=== PATIENT | female | born 1945 | race Caucasian/White ===

== ENCOUNTER → 2017-10-22 09:20 | Outpatient (CLI) | payer MEDICARE, OTHER, SELFPAY ==
--- NOTE | 2017-10-22 09:27 | DI.MG.S_ITS ---
UNILATERAL RIGHT DIGITAL SCREENING MAMMOGRAM 3D/2D WITH CAD POST MASTECTOMY: 10/22/2017 CLINICAL: Routine screening. Personal history of left breast cancer. Comparison is made to exams dated: 10/10/2016 mammogram and 09/12/2016 mammogram - [facility]. The tissue of the right breast is heterogeneously dense. This may lower the sensitivity of mammography. Current study was also evaluated with a Computer Aided Detection (CAD) system. No significant masses, calcifications, or other findings are seen in the breast. There has been no significant interval change. IMPRESSION: NEGATIVE There is no mammographic evidence of malignancy. A 1 year screening mammogram is recommended. This exam was interpreted at Station ID: [id number]. NOTE: For mammograms, a report in lay terms will be sent to the patient. Approximately 15% of breast malignancies will not be visualized mammographically. In the management of a palpable breast mass, a negative mammogram must not discourage biopsy of a clinically suspicious lesion. Electronically Signed By: Raheel hendricks/roxana:10/22/2017 15:52:43 copy to: NATALIIA CALABRESE copy to: BRAYAN CHO letter sent: Normal Exam ACR BI-RADS Category 1: Negative 3341F
== END ==
PROVIDERS: Family Provider Internal Medicine Medical Oncology; PCP Internal Medicine; Visit Provider Nurse Practitioner Gerontology
DX: Z12.31 Encounter for screening mammogram for malignant neoplasm of breast (principal); Z85.3 Personal history of malignant neoplasm of breast
CPT/HCPCS: 77063; 77065

== ENCOUNTER → 2018-06-11 13:13 | Outpatient (CLI) | payer MEDICARE, OTHER, SELFPAY ==
--- NOTE | 2018-06-11 | DI.RAD.S_ITS ---
This blank DEXA report has been sent in error by the PACS system. The correct and complete report will be forthcoming in 1-2 days. Thank you for your patience and understanding. Dictated by: Neno Sandoval M.D. on 06/11/2018 at 14:56 Approved by: Neno Sandoval M.D. on 06/11/2018 at 14:56
== END ==
PROVIDERS: Family Provider Internal Medicine Medical Oncology; PCP Internal Medicine; Visit Provider Nurse Practitioner Gerontology
DX: M85.852 Other specified disorders of bone density and structure, left thigh (principal); Z78.0 Asymptomatic menopausal state; Z85.3 Personal history of malignant neoplasm of breast
CPT/HCPCS: 77080

== ENCOUNTER → 2018-10-23 10:36 | Outpatient (CLI) | payer MEDICARE, OTHER, SELFPAY ==
--- NOTE | 2018-10-23 | DI.MG.S_ITS ---
UNILATERAL RIGHT DIGITAL SCREENING MAMMOGRAM 3D/2D WITH CAD POST MASTECTOMY: 10/23/2018 CLINICAL: Routine screening. Personal history of left breast cancer. Comparison is made to exams dated: 10/22/2017 mammogram - [facility] and 09/12/2016 mammogram - [facility]. The tissue of right breast is heterogeneously dense. This may lower the sensitivity of mammography. Current study was also evaluated with a Computer Aided Detection (CAD) system. There are mole markers on the right breast. No significant masses, calcifications, or other findings are seen in the breast. There has been no significant interval change. IMPRESSION: NEGATIVE There is no mammographic evidence of malignancy. A 1 year screening mammogram is recommended. This exam was interpreted at Station ID: [id number]. NOTE: For mammograms, a report in lay terms will be sent to the patient. Approximately 15% of breast malignancies will not be visualized mammographically. In the management of a palpable breast mass, a negative mammogram must not discourage biopsy of a clinically suspicious lesion. Electronically Signed By: Dave bonilla/roxana:10/23/2018 12:25:55 copy to: MORGAN HERMOSILLO copy to: BRAYAN CHO letter sent: Normal Exam ACR BI-RADS Category 1: Negative 3341F
== END ==
PROVIDERS: Family Provider Internal Medicine Medical Oncology; PCP Internal Medicine; Visit Provider Internal Medicine Medical Oncology
DX: Z12.31 Encounter for screening mammogram for malignant neoplasm of breast (principal); Z85.3 Personal history of malignant neoplasm of breast
CPT/HCPCS: 77063; 77067

== ENCOUNTER → 2020-04-18 11:37 | Outpatient (CLI) | payer MEDICARE, OTHER, SELFPAY ==
--- NOTE | 2020-04-18 | DI.MG.S_ITS ---
UNILATERAL RIGHT DIGITAL SCREENING MAMMOGRAM 3D/2D WITH CAD POST MASTECTOMY: 04/18/2020 CLINICAL: Breast cancer. Routine screening. Comparison is made to exams dated: 10/23/2018 mammogram and 10/22/2017 mammogram - [facility]. The tissue of right breast is heterogeneously dense. This may lower the sensitivity of mammography. Current study was also evaluated with a Computer Aided Detection (CAD) system. There are benign calcifications in the right breast. There are mole markers on the right breast. No significant masses, calcifications, or other findings are seen in the breast. There has been no significant interval change. IMPRESSION: BENIGN There is no mammographic evidence of malignancy. A 1 year screening mammogram is recommended. This exam was interpreted at Station ID: [id number]. NOTE: For mammograms, a report in lay terms will be sent to the patient. Approximately 15% of breast malignancies will not be visualized mammographically. In the management of a palpable breast mass, a negative mammogram must not discourage biopsy of a clinically suspicious lesion. Electronically Signed By: Soumya walsh/roxana:04/18/2020 13:45:31 copy to: BRAYAN CHO letter sent: Normal Exam ACR BI-RADS Category 2: Benign Finding(s) 3342F
== END ==
PROVIDERS: Family Provider Internal Medicine Medical Oncology; PCP Internal Medicine; Referring Provider Internal Medicine; Visit Provider Internal Medicine Hematology & Oncology
DX: Z12.31 Encounter for screening mammogram for malignant neoplasm of breast (principal)
CPT/HCPCS: 77063; 77067

== ENCOUNTER → 2020-06-30 13:33 | Outpatient (CLI) | payer MEDICARE, OTHER, SELFPAY ==
[2020-06-30] MEDS: COVID-19 VACC #1, MRNA(MOD) 100 MCG/0.5 ML VIAL IM (13:50)
== END ==
PROVIDERS: Family Provider Internal Medicine Medical Oncology; PCP Internal Medicine; Visit Provider Internal Medicine
DX: Z23 Encounter for immunization (principal)
CPT/HCPCS: 0011A; 91301

== ENCOUNTER → 2020-07-28 13:11 | Outpatient (CLI) | payer MEDICARE, OTHER, SELFPAY ==
[2020-07-28] MEDS: COVID-19 VACC #2, MRNA(MOD) 100 MCG/0.5 ML VIAL IM (13:15)
== END ==
PROVIDERS: Family Provider Internal Medicine Medical Oncology; PCP Internal Medicine; Visit Provider Internal Medicine
DX: Z23 Encounter for immunization (principal)
CPT/HCPCS: 0012A; 91301

== ENCOUNTER → 2021-06-20 08:37 | Outpatient (CLI) | payer MEDICARE, OTHER, SELFPAY ==
--- NOTE | 2021-06-20 | DI.MG.S_ITS ---
UNILATERAL RIGHT DIGITAL SCREENING MAMMOGRAM 3D/2D WITH CAD POST MASTECTOMY: 06/20/2021 CLINICAL: Routine screening. Personal history of left breast cancer. Comparison is made to exams dated: 04/18/2020 mammogram, 10/23/2018 mammogram, and 10/22/2017 mammogram - [facility]. The tissue of right breast is heterogeneously dense. This may lower the sensitivity of mammography. Current study was also evaluated with a Computer Aided Detection (CAD) system. There are benign calcifications in the right breast. There are mole markers on the right breast. No significant masses, calcifications, or other findings are seen in the breast. There has been no significant interval change. IMPRESSION: BENIGN There is no mammographic evidence of malignancy. A 1 year screening mammogram is recommended. This exam was interpreted at Station ID: [id number]. NOTE: For mammograms, a report in lay terms will be sent to the patient. Approximately 15% of breast malignancies will not be visualized mammographically. In the management of a palpable breast mass, a negative mammogram must not discourage biopsy of a clinically suspicious lesion. Electronically Signed By: Kaden Reddy M.D., jr/roxana:06/20/2021 10:05:34 copy to: Addis Mauricio copy to: Raeann Charles letter sent: Normal Exam ACR BI-RADS Category 2: Benign Finding(s) 3342F
== END ==
PROVIDERS: Family Provider Internal Medicine Medical Oncology; PCP Internal Medicine; Referring Provider Internal Medicine; Visit Provider Internal Medicine
DX: Z12.31 Encounter for screening mammogram for malignant neoplasm of breast (principal)
CPT/HCPCS: 77063; 77067

== ENCOUNTER → 2021-07-30 11:17 | Outpatient (CLI) | payer MEDICARE, OTHER, SELFPAY ==
[2021-07-30 13:44] LABS: COVID19 -Nasal RAPID Negative (Negative)
== END ==
PROVIDERS: Family Provider Internal Medicine Medical Oncology; PCP Internal Medicine; Visit Provider Family Medicine Sleep Medicine
DX: Z20.822 Contact with and (suspected) exposure to COVID-19 (principal)
CPT/HCPCS: 87635; C9803

== ENCOUNTER 2021-07-31 09:00 | Day surgery (SDC) | payer MEDICARE, OTHER, SELFPAY ==
[2021-07-31 10:04] VITALS: BP 139/76; PULSE 68; RESP 16; TEMP 36.6; O2SAT 100; BMI 21.4
[2021-07-31] MEDS: PROPARACAINE 0.5% OPHTH SOL 2 DROPS EYE-OP (10:12)
[2021-07-31] MEDS: CATARACT EYE COMPOUND (10 DROPS/SYRINGE) 3 DROPS EYE-OP (10:19)
--- NOTE | 2021-07-31 10:59 | P.OP_ITS ---
Operative Date/Time/Diagnoses Pre-op diagnosis: Nuclear Cataract Left eye Post-op diagnosis: same Procedure & Clinicians Same procedure as scheduled: Yes Surgeon: Aron Lee Anesthesia Type: MAC +/- and Sedation Operative Notes Procedure in detail: Patient brought to the operating suite. Tetracaine drops placed in the left eye. Marking instrument was used to michelle the vertical and horizontal meridians. Patient was prepped and draped in sterile manner. Wire lid speculum was placed in the eye. Betadine drops were placed on the eye. This was irrigated. Lido gregg jelly was placed on the eye. A paracentesis port was created with a side- port blade. 0.1 mL 1% preservative free lidocaine was injected into the anterior chamber. The anterior chamber was deepened with viscoelastic. 2.6 mm keratome was used to create a temporal clear corneal incision. Cystotome and Utrata forceps were used to create continuous tear capsulorrhexis. Balanced salt solution was used to hydro dissect the nucleus. The phacoemulsification handpiece was inserted and the nucleus was removed using the stop and chop technique. The irrigation aspiration handpiece was inserted and the remaining cortex was removed. Anterior chamber was deepened with viscoelastic. An Maddox [id number] intraocular lens with a power of 20.0 was injected into the capsular bag. Irrigation aspiration handpiece was inserted and the remaining viscoelastic was removed. The lens was rotated to the 90 degree meridian. Incision was hydrated with balanced salt solution and found to be leak free with pressure with Weck- Dena sponges. 0.1 mL Vigamox injected anterior chamber. 0.3 mL Kenalog 10 mg was injected subconjunctivally. Lid speculum was removed. The patient left the operating room in excellent condition. Complications: none Post-operative Condition: stable Disposition: same day surgery
--- NOTE | 2021-07-31 10:59 | PM.PREOP ---
Pre-operative Note Interval Note History & Physical reviewed/Exam performed by Physician: Yes Changes to H&P: No
[2021-07-31] MEDS: TETRACAINE 0.5% OPHTH DROPS 4 ML 2 DROPS EYE-OP (11:15)
[2021-07-31] MEDS: HYALURONATE SODIUM 30 MG-10 MG/ML SYRINGES 1 BOX INTRAOCULA (11:15)
[2021-07-31] MEDS: MOXIFLOXACIN INJ 4 MG/0.8 ML VIAL 0.5 MG EYE-OP (11:15)
[2021-07-31] MEDS: LIDOCAINE 2% (GLYDO) 6 ML GEL TOP (11:15)
[2021-07-31] MEDS: TRIAMCINOLONE 50 MG/5 ML VIAL INJ (11:15)
[2021-07-31] MEDS: PHENYLEPHRINE/LIDOCAINE VIAL (OR) 0.2 ML EYE-OP (11:15)
[2021-07-31] MEDS: BALANCED SALT IRRIG SOLN NO.2 500 ML, EPINEPHrine 1 MG IRR (11:16)
[2021-07-31 11:35] VITALS: BP 129/65; PULSE 63; RESP 16; TEMP 36.1; O2SAT 100
== END 2021-07-31 11:44 | disposition home or self-care (01) ==
PROVIDERS: Family Provider Internal Medicine Medical Oncology; PCP Internal Medicine; Referring Provider Ophthalmology; Visit Provider Ophthalmology
PROC: (CPT 66984; principal; 2021-07-31 10:45)
DX: H25.12 Age-related nuclear cataract, left eye (principal); I10 Essential (primary) hypertension
CPT/HCPCS: 66984; J0171; J2250; J3301; V2787

== ENCOUNTER → 2021-08-13 11:13 | Outpatient (CLI) | payer MEDICARE, OTHER, SELFPAY ==
[2021-08-13 15:09] LABS: COVID19 -Nasal RAPID Negative (Negative)
== END ==
PROVIDERS: Family Provider Internal Medicine Medical Oncology; PCP Internal Medicine; Visit Provider Physical Medicine & Rehabilitation
DX: Z20.822 Contact with and (suspected) exposure to COVID-19 (principal)
CPT/HCPCS: 87635; C9803

== ENCOUNTER 2021-08-14 06:31 | Day surgery (SDC) | payer MEDICARE, OTHER, SELFPAY ==
[2021-08-14] MEDS: PROPARACAINE 0.5% OPHTH SOL 2 DROPS EYE-OP (06:43)
[2021-08-14] MEDS: CATARACT EYE COMPOUND (10 DROPS/SYRINGE) 3 DROPS EYE-OP (06:47)
[2021-08-14 06:49] VITALS: BP 140/77; PULSE 67; RESP 16; TEMP 36.6; O2SAT 99; BMI 20.7
--- NOTE | 2021-08-14 07:33 | SUR.OPER ---
Supine on eye stretcher, head on extension cradle secured with tape. Arms tucked at sides with blanket. Pillow under knees.
--- NOTE | 2021-08-14 07:48 | P.OP_ITS ---
Operative Date/Time/Diagnoses Pre-op diagnosis: Nuclear cataract right eye Procedure & Clinicians Procedure: Cataract Surgery Same procedure as scheduled: Yes Surgeon: Aron Lee Anesthesia Type: MAC +/- and Sedation Operative Notes Procedure in detail: Patient brought to the operating suite. Tetracaine drops placed in the right eye. Marking instrument was used to michelle the vertical and horizontal meridians. Patient was prepped and draped in sterile manner. Wire lid speculum was placed in the eye. Marking instrument was used to michelle the 105 degree meridian. Betadine drops were placed on the eye. This was irrigated. Lidocaine jelly was placed on the eye. A paracentesis port was created with a side-port blade. 0.1 mL 1% preservative free lidocaine was injected into the anterior chamber. The anterior chamber was deepened with viscoelastic. 2.6 mm keratome was used to create a temporal clear corneal incision. Cystotome and Utrata forceps were used to create continuous tear capsulorrhexis. Balanced salt solution was used to hydro dissect the nucleus. The phacoemulsification handpiece was inserted and the nucleus was removed using the stop and chop technique. The irrigation aspiration handpiece was inserted and the remaining cortex was removed. Anterior chamber was deepened with viscoelastic. An Maddox [id number] intraocular lens with a power of 19.5 was injected into the capsular bag. Irrigation aspiration handpiece was inserted and the remaining viscoelastic was removed. The lens was rotated to the 105 degree meridian. Incision was hydrated with balanced salt solution and found to be leak free with pressure with Weck-Dena sponges. 0.1 mL Vigamox injected anterior chamber. 0.3 mL Kenalog 10 mg was injected subc onjunctivally. Lid speculum was removed. The patient left the operating room in excellent condition. Complications: none Post-operative Condition: stable Disposition: same day surgery
--- NOTE | 2021-08-14 07:48 | PM.PREOP ---
Pre-operative Note Interval Note History & Physical reviewed/Exam performed by Physician: Yes Changes to H&P: No
[2021-08-14] MEDS: HYALURONATE SODIUM 30 MG-10 MG/ML SYRINGES 1 BOX INTRAOCULA (08:03)
[2021-08-14] MEDS: TRIAMCINOLONE 50 MG/5 ML VIAL INJ (08:04)
[2021-08-14] MEDS: PHENYLEPHRINE/LIDOCAINE VIAL (OR) 0.2 ML EYE-OP (08:04)
[2021-08-14] MEDS: MOXIFLOXACIN INJ 4 MG/0.8 ML VIAL 0.5 MG EYE-OP (08:04)
[2021-08-14] MEDS: LIDOCAINE 2% (GLYDO) 6 ML GEL TOP (08:05)
[2021-08-14] MEDS: BALANCED SALT IRRIG SOLN NO.2 500 ML, EPINEPHrine 1 MG IRR (08:05)
[2021-08-14] MEDS: TETRACAINE 0.5% OPHTH DROPS 4 ML 2 DROPS EYE-OP (08:06)
[2021-08-14 08:20] VITALS: BP 120/87; PULSE 71; RESP 14; TEMP 36.1; O2SAT 100
== END 2021-08-14 08:25 | disposition home or self-care (01) ==
PROVIDERS: Family Provider Internal Medicine Medical Oncology; PCP Internal Medicine; Referring Provider Ophthalmology; Visit Provider Ophthalmology
PROC: (CPT 66984; principal; 2021-08-14 07:45)
DX: H25.11 Age-related nuclear cataract, right eye (principal); I10 Essential (primary) hypertension
CPT/HCPCS: 66984; J0171; J2250; J3301; V2787

== ENCOUNTER → 2021-09-20 11:34 | Outpatient (CLI) | payer MEDICARE, OTHER, SELFPAY ==
--- NOTE | 2021-09-20 | DI.RAD.S_ITS ---
PROCEDURE: XR DEXA AXIAL SKELETON INDICATIONS: Other specified disorders of bone density COMPARISON: None. FINDINGS: This blank DEXA report has been sent in error by the PACS system. The correct and complete report will be forthcoming in 1-2 days. Thank you for your patience and understanding. Dictated by: Kristie Rossi MD, PhD on 09/20/2021 at 12:36 Approved by: Kristie Rossi MD, PhD on 09/20/2021 at 12:36
== END ==
PROVIDERS: Family Provider Internal Medicine Medical Oncology; PCP Internal Medicine; Referring Provider Internal Medicine Hematology & Oncology; Visit Provider Internal Medicine Hematology & Oncology
DX: Z13.820 Encounter for screening for osteoporosis; M85.89 Other specified disorders of bone density and structure, multiple sites; Z78.0 Asymptomatic menopausal state
CPT/HCPCS: 77080

== ENCOUNTER → 2021-11-24 09:09 | Outpatient (CLI) | payer MEDICARE, OTHER, SELFPAY ==
[2021-11-24 09:35] LABS: Hematocrit 41.8 % (36-46); Mean Corpuscular HGB Conc 33.6 % (30-36); Mean Corpuscular Hemoglobin 30.2 PG (26-34); Mean Corpuscular Volume 90.1 fL (80-100); Platelet Count 271 X10^3/uL (150-400); Red Blood Cell Count 4.64 X10^6/uL (4.0-5.2); Red Cell Distribution Width 13.9 % (11.6-14.8); White Blood Cell Count 4.6 X10^3/uL (4.5-11.0)
[2021-11-24 09:54] LABS: Alanine Aminotransferase 16 IU/L (<35); Albumin 4.6 g/dL (3.5-5.0); Albumin Globulin Ratio 1.6 (1.0-2.8); Alkaline Phosphatase 45 U/L (38-126); Aspartate Aminotransferase 25 IU/L (14-36); Blood Urea Nitrogen 17 mg/dL (7-17); Calcium 9.4 mg/dL (8.4-10.2); Carbon Dioxide 30 mmol/L (22-32); Chloride 104 mmol/L (98-107); Cholesterol 243 mg/dL (140-199); Estimated Glomerular Filt Rate > 60 mL/min (>60); Globulin 2.8 g/dL (1.7-4.1); Glucose 86 mg/dL (80-110); HEMOLYSIS < 15 (0-50); Sodium 140 mmol/L (137-145); Total Protein 7.4 g/dL (6.3-8.2); Triglycerides 51 mg/dL (35-150)
[2021-11-24 10:06] LABS: HDL Cholesterol 117 mg/dL (40-60); LDL Cholesterol Calculated 116 mg/dL (<100)
[2021-11-24 10:26] LABS: TSH w/ Reflex to FT4 2.98 uIU/mL (0.47-4.68)
== END ==
PROVIDERS: Family Provider Internal Medicine Medical Oncology; PCP Internal Medicine; Referring Provider Internal Medicine; Visit Provider Internal Medicine
DX: I10 Essential (primary) hypertension (principal); C50.912 Malignant neoplasm of unspecified site of left female breast; E78.2 Mixed hyperlipidemia; Z17.0 Estrogen receptor positive status [ER+]
CPT/HCPCS: 36415; 80053; 80061; 84443; 85027

== ENCOUNTER → 2022-06-05 11:44 | Outpatient (CLI) | payer MEDICARE, OTHER, SELFPAY ==
[2022-06-05 14:03] LABS: Aspartate Aminotransferase 26 IU/L (14-36); Blood Urea Nitrogen 12 mg/dL (7-17); Calcium 9.4 mg/dL (8.4-10.2); Carbon Dioxide 29 mmol/L (22-32); Chloride 102 mmol/L (98-107); Cholesterol 164 mg/dL (140-199); Estimated Glomerular Filt Rate > 60 mL/min (>60); Glucose 83 mg/dL (80-110); HDL Cholesterol 77 mg/dL (40-60); HEMOLYSIS < 15 (0-50); LDL Cholesterol Calculated 79 mg/dL (<100); Potassium 4.3 mmol/L (3.4-5.1); Sodium 138 mmol/L (137-145); Triglycerides 40 mg/dL (35-150)
== END ==
PROVIDERS: Family Provider Internal Medicine Medical Oncology; PCP Internal Medicine; Referring Provider Internal Medicine; Visit Provider Internal Medicine
DX: E78.2 Mixed hyperlipidemia (principal); I10 Essential (primary) hypertension
CPT/HCPCS: 36415; 80048; 80061; 84450

== ENCOUNTER → 2022-06-13 09:22 | Outpatient (CLI) | payer MEDICARE, OTHER, SELFPAY ==
--- NOTE | 2022-06-13 | DI.MG.S_ITS ---
UNILATERAL RIGHT DIGITAL SCREENING MAMMOGRAM 3D/2D WITH CAD POST MASTECTOMY: 06/13/2022 CLINICAL: Routine right screening. Personal history of left breast cancer, left mastectomy. Comparison is made to exams dated: 06/20/2021 mammogram, 04/18/2020 mammogram, and 10/23/2018 mammogram - [facility]. The right breast is heterogeneously dense, which may obscure small masses (category c / 51-75% glandular tissue). Current study was also evaluated with a Computer Aided Detection (CAD) system. There are benign calcifications in the right breast. There are mole markers on the right breast. No significant masses, calcifications, or other findings are seen in the breast. There has been no significant interval change. IMPRESSION: BENIGN There is no mammographic evidence of malignancy. A 1 year screening mammogram is recommended. Future imaging is recommended as follows: 06/21/2022 screening mammogram. This exam was interpreted at Station ID: [id number]. NOTE: For mammograms, a report in lay terms will be sent to the patient. Approximately 15% of breast malignancies will not be visualized mammographically. In the management of a palpable breast mass, a negative mammogram must not discourage biopsy of a clinically suspicious lesion. Electronically Signed By: Kaden Reddy M.D., jr/roxana:06/13/2022 12:55:30 copy to: Addis Mauricio copy to: Raeann Charles letter sent: Normal Exam ACR BI-RADS Category 2: Benign Finding(s) 3342F
== END ==
PROVIDERS: Family Provider Internal Medicine Medical Oncology; PCP Internal Medicine; Referring Provider Internal Medicine; Visit Provider Internal Medicine
DX: Z12.31 Encounter for screening mammogram for malignant neoplasm of breast (principal); Z85.3 Personal history of malignant neoplasm of breast; Z90.12 Acquired absence of left breast and nipple
CPT/HCPCS: 77063; 77067

== ENCOUNTER → 2022-11-27 13:27 | Outpatient (CLI) | payer MEDICARE, OTHER, SELFPAY ==
--- NOTE | 2022-11-27 13:28 | DI.ECHO.S_ITS ---
[facility]---------+ [facility] +---------+ : : [address] : [place] : : : : [id number] : : : : Phone: [phone]---------+ Echocardiogram Report + + :Name: JHON MCCABE Study Date: 11/27/2022 Height: 64 in : :[facility] ReadingLocation: Weight: 130 lb : : Gender: Female BSA: 1.6 m2 : :: 1945 Age: 77 yrs BP: 115/73 mmHg: :Reason For Study: ARRHYTHMIA, RULE OUT ATRIAL FIBRILLATION : :Ordering Physician: DENNY, : :TERA Performed By: Kiah Josue : :Referring: TERA BALDWIN : + + Interpretation Summary The patient was in atrial fibrillation with heart rates between 86-122 bpm during the exam. The left ventricle is normal in size. The ejection fraction is estimated to be 60-65%. The right ventricle is normal in size and function. There is moderate mitral regurgitation. Compared to the prior echo study, there has been an increase in the severity of mitral regurgitation. There is mild aortic regurgitation. Compared to the prior echo study, there has been no change in the severity of aortic regurgitation. There is moderate to severe tricuspid regurgitation. Compared to the prior echo exam, there has been an increase in TR severity. The right ventricular systolic pressure is estimated to be at least 30 mmHg based on an estimated right atrial pressure of 3 mm Hg. The IVC is of normal diameter and collapses greater than 50% with a sniff. This suggests a low right atrial pressure of 3 mm Hg. Procedure: A two-dimensional transthoracic echocardiogram with color flow and Doppler was performed. The study quality was technically adequate. Comparison is made with the echocardiogram of 03/21/2017. The patient was in atrial fibrillation with heart rates between 86-122 bpm during the exam. Left Ventricle: The left ventricle is normal in size. Proximal septal thickening is noted. There is no echo evidence for significant left ventricular outflow tract obstruction. There is no thrombus. The ejection fraction is estimated to be 60-65%. There are no focal wall motion abnormalities. Diastolic function could not be accurately assessed due to atrial fibrillation. Right Ventricle: The right ventricle is normal in size and function. Atria: The left atrium is severely dilated. The left atrium has mildly increased in size since the prior echo exam. The right atrium is mildly dilated. There is no Doppler evidence for an interatrial shunt. The interatrial septum bows toward right atrium consistent with elevated left atrial pressure. Mitral Valve: The mitral valve leaflets appear mildly thickened, but open well. There is mild mitral annular calcification. There is moderate mitral regurgitation. Compared to the prior echo study, there has been an increase in the severity of mitral regurgitation. Aortic Valve: The aortic valve is trileaflet. The aortic valve opens well. There is no aortic valve stenosis. There is mild aortic regurgitation. Compared to the prior echo study, there has been no change in the severity of aortic regurgitation. Tricuspid Valve: The tricuspid valve leaflets are thickened and/or calcified, but open well. There is moderate to severe tricuspid regurgitation. The right ventricular systolic pressure is estimated to be at least 30 mmHg based on an estimated right atrial pressure of 3 mm Hg. Compared to the prior echo exam, there has been an increase in TR severity. Pulmonic Valve: The pulmonic valve is not well seen, but is grossly normal. There is no pulmonic valvular regurgitation. Great Vessels: The aortic root is normal size. The dimensions of the ascending aorta are normal. The IVC is of normal diameter and collapses greater than 50% with a sniff. This suggests a low right atrial pressure of 3 mm Hg. Pericardium/ Pleura There is no pericardial effusion. There is an anterior echo-free space consistent with a fat pad. There is no pleural effusion. MMode/2D Measurements & Calculations LVIDd: 3.7 cm LVOT diam: 1.9 cm LVIDs: 2.7 cm Ao root diam: 2.7 cm FS: 28.7 % asc Aorta Diam: 3.7 cm EPSS: 0.34 cm Ao Arch Diam (Prox Trans): 2.6 cm IVSd: 0.90 cm LVPWd: 0.85 cm LV lucero. diameter/BSA (cm/m^2): 2.3 LV sys. diameter/BSA (cm/m^2): 1.6 LA A2 area: 27.2 cm2 RA long axis: 6.2 cm LA A4 area: 24.3 cm2 RA area: 21.5 cm2 LA length (vol): 6.2 cm RA vol: 62.7 ml LA vol: 90.9 ml RA : 38.5 ml/m2 LA vol index: 55.8 ml/m2 IVC diam: 1.2 cm RVD1 (basal): 3.9 cm RVD2 (mid): 2.5 cm TAPSE: 1.9 cm Doppler Measurements & Calculations Ao V2 max: 110.3 cm/sec LVOT Max Julio: 97.0 cm/sec Ao V2 mean: 78.8 cm/sec LV V1 max P.8 mmHg Ao max P.9 mmHg LV V1 VTI: 16.1 cm Ao mean P.7 mmHg SCOUT(I,D): 2.4 cm2 Ao V2 VTI: 18.9 cm SCOUT(V,D): 2.5 cm2 sev ratio: 0.85 SCOUT indexed to BSA (cm^2/m^2): 1.5 AI P1/2t: 791.7 msec AI dec slope: 158.0 cm/sec2 MV E max julio: 92.8 cm/sec TR max julio: 258.4 cm/sec MV A max julio: 1.6 cm/sec TR max P.7 mmHg MV E/A: 59.8 PA V2 max: 63.2 cm/sec Med Peak E' Julio: 10.0 cm/sec PA V2 mean: 45.1 cm/sec E/E' med: 9.3 PA mean P.91 mmHg Lat Peak E' Julio: 12.0 cm/sec PA pr(Accel): 46.5 mmHg E/E' lat: 7.8 E/e' average: 8.5 MV dec time: 0.16 sec SV(LVOT): 46.1 ml Reading Physician:09:21 AM
== END ==
PROVIDERS: Family Provider Internal Medicine Medical Oncology; PCP Internal Medicine; Referring Provider Internal Medicine; Visit Provider Internal Medicine
DX: I08.3 Combined rheumatic disorders of mitral, aortic and tricuspid valves (principal); I49.9 Cardiac arrhythmia, unspecified; I10 Essential (primary) hypertension
CPT/HCPCS: 93306

== ENCOUNTER → 2022-12-27 09:33 | Outpatient (CLI) | payer MEDICARE, OTHER, SELFPAY | PROVIDERS: Family Provider Internal Medicine Medical Oncology; PCP Internal Medicine; Visit Provider Physician Assistant | DX: N39.0 Urinary tract infection, site not specified (principal) | CPT/HCPCS: 87077; 87086; 87186 ==

== ENCOUNTER → 2023-03-07 09:26 | Outpatient (CLI) | payer MEDICARE, OTHER, SELFPAY | PROVIDERS: Family Provider Internal Medicine Medical Oncology; PCP Internal Medicine; Visit Provider Physician Assistant | DX: R30.0 Dysuria (principal) | CPT/HCPCS: 87086 ==

== ENCOUNTER → 2023-06-25 09:24 | Outpatient (CLI) | payer MEDICARE, OTHER, SELFPAY ==
--- NOTE | 2023-06-25 09:27 | DI.MG.S_ITS ---
UNILATERAL RIGHT DIGITAL SCREENING MAMMOGRAM 3D/2D WITH CAD POST MASTECTOMY: 06/25/2023 CLINICAL: Routine screening. Personal history of left breast cancer. Comparison is made to exams dated: 06/13/2022 mammogram, 06/20/2021 mammogram, 04/18/2020 mammogram, and 10/23/2018 mammogram - [facility]. The right breast is heterogeneously dense, which may obscure small masses (category c / 51-75% glandular tissue). Current study was also evaluated with a Computer Aided Detection (CAD) system. There are benign calcifications in the right breast. There are mole markers on the right breast. No significant masses, calcifications, or other findings are seen in the breast. There has been no significant interval change. IMPRESSION: BENIGN There is no mammographic evidence of malignancy. A 1 year screening mammogram is recommended. This exam was interpreted at Station ID: [id number]. NOTE: For mammograms, a report in lay terms will be sent to the patient. Approximately 15% of breast malignancies will not be visualized mammographically. In the management of a palpable breast mass, a negative mammogram must not discourage biopsy of a clinically suspicious lesion. Electronically Signed By: Job harrison/penrad:06/25/2023 14:35:56 copy to: Addis Mauricio copy to: Raeann Charles letter sent: Normal Exam ACR BI-RADS Category 2: Benign Finding(s) 3342F
== END ==
PROVIDERS: Family Provider Internal Medicine Medical Oncology; PCP Internal Medicine; Referring Provider Internal Medicine; Visit Provider Internal Medicine
DX: Z12.31 Encounter for screening mammogram for malignant neoplasm of breast (principal); Z85.3 Personal history of malignant neoplasm of breast; R92.331 Mammographic heterogeneous density, right breast
CPT/HCPCS: 77063; 77067

== ENCOUNTER → 2023-09-01 11:45 | Outpatient (CLI) | payer MEDICARE, OTHER, SELFPAY ==
[2023-09-01 12:41] LABS: Hematocrit 44.1 % (36-46); Hemoglobin 14.6 g/dL (12.0-16.0); Mean Corpuscular HGB Conc 33.2 % (30-36); Mean Corpuscular Hemoglobin 30.1 PG (26-34); Mean Corpuscular Volume 90.7 fL (80-100); Platelet Count 261 X10^3/uL (150-400); Red Blood Cell Count 4.86 X10^6/uL (4.0-5.2); Red Cell Distribution Width 14.4 % (11.6-14.8); White Blood Cell Count 5.4 X10^3/uL (4.5-11.0)
[2023-09-01 13:23] LABS: Alanine Aminotransferase 32 IU/L (<35); Albumin 4.5 g/dL (3.5-5.0); Albumin Globulin Ratio 1.5 (1.0-2.8); Alkaline Phosphatase 63 U/L (38-126); Aspartate Aminotransferase 38 IU/L (14-36); Bilirubin Total 1.1 mg/dL (0.2-1.3); Blood Urea Nitrogen 14 mg/dL (7-17); Calcium 10.1 mg/dL (8.4-10.2); Carbon Dioxide 28 mmol/L (22-32); Chloride 106 mmol/L (98-107); Cholesterol 165 mg/dL (140-199); Estimated Glomerular Filt Rate > 60 mL/min (>60); Globulin 3.1 g/dL (1.7-4.1); Glucose 93 mg/dL (80-110); HDL Cholesterol 87 mg/dL (40-60); HEMOLYSIS < 15 (0-50); LDL Cholesterol Calculated 67 mg/dL (<100); Potassium 4.1 mmol/L (3.4-5.1); Sodium 139 mmol/L (137-145); Total Protein 7.6 g/dL (6.3-8.2); Triglycerides 54 mg/dL (35-150)
[2023-09-01 13:55] LABS: TSH w/ Reflex to FT4 2.17 uIU/mL (0.47-4.68)
[2023-09-02 04:28] LABS: HBsAg Screen Negative (Negative); Hepatitis A Antibody IgM Negative (Negative); Hepatitis B Core Antibody IgM Negative (Negative); Hepatitis C Antibody Non Reactive (Non Reactive)
== END ==
PROVIDERS: Family Provider Internal Medicine Medical Oncology; PCP Internal Medicine; Referring Provider Internal Medicine; Visit Provider Internal Medicine
DX: E78.2 Mixed hyperlipidemia (principal); I48.20 Chronic atrial fibrillation, unspecified; Z20.9 Contact with and (suspected) exposure to unspecified communicable disease
CPT/HCPCS: 36415; 80053; 80061; 80074; 84443; 85027

== ENCOUNTER 2023-10-22 15:00 | Emergency (ER) | payer MEDICARE, OTHER, SELFPAY ==
[2023-10-22 15:11] VITALS: BP 157/89; PULSE 87; RESP 18; TEMP 36.2; O2SAT 97; BMI 22.3
--- NOTE | 2023-10-22 15:18 | DI.RAD.S_ITS ---
PROCEDURE: XR WRIST RT MIN 3V INDICATIONS: fall TECHNIQUE: 4 views of the wrist were acquired. COMPARISON: None. FINDINGS: Bones: No fractures or dislocations. Osteoarthritic changes are noted throughout right wrist most notably involving 1st CMC joint. No suspicious bony lesions. Soft tissues: No suspicious soft tissue calcifications. IMPRESSION: No acute wrist fracture or dislocation. Right wrist joint osteoarthritis. Dictated by: Neno Sandoval M.D. on 10/22/2023 at 16:07 Approved by: Neno Sandoval M.D. on 10/22/2023 at 16:08
--- NOTE | 2023-10-22 16:18 | ED_ITS ---
HPI - Fall <Xin Steven PA-C - Last Filed: 10/22/23 20:40> General Chief Complaint: Fall Stated Complaint: Fall, On thinners, R Wrist concerns Time Seen by Provider: 10/22/23 15:53 Source: patient Mode of arrival: Family Vehicle History of Present Illness HPI Narrative: 78-year-old female presents with concern for right wrist pain and left carrera pain. Patient had a fall today without hitting her head or neck. She denies loss of consciousness. She states that she was standing on the bottom rung of a step stool reaching up into a cabinet above her stove and taking out a large bladder and as she was doing so she somehow lost her balance. She states she fell down but caught herself on the way slamming her right wrist into the adjacent Fridge and some how hitting her left carrera against something. She states she ended up on the floor but denies hitting head loss of consciousness or any other injury or complaint. She denies prodrome prior to the fall and has not had dizziness, shortness of breath, chest pain lightheadedness or any other symptoms. She states she feels she is able to move her wrist fairly normally however it is painful and she has noted swelling on the top of her wrist on the thumb side. She states she is able to walk normally and does have left carrera pain that feels like an aching bruise. She says she is able to move her ankle and foot normally. She denies numbness or tingling in her hand or foot. Related Data Home Medications Medication Instructions Recorded Confirmed letrozole 2.5 mg tablet 2.5 mg PO DAILY 07/31/21 09/01/23 cholecalciferol (vitamin D3) 50 50 mcg PO DAILY 11/23/21 09/01/23 mcg (2,000 unit) capsule vitamin E 268 mg (400 unit) capsule 400 unit PO DAILY 11/23/21 09/01/23 Previous Rx's Medication Instructions Recorded amlodipine 2.5 mg tablet 2.5 mg PO DAILY #90 tabs 05/06/23 apixaban 5 mg tablet (Eliquis) 5 mg PO BID #180 tabs 05/06/23 metoprolol succinate 50 mg 50 mg PO DAILY #90 tabs 05/06/23 tablet,extended release 24 hr rosuvastatin 10 mg tablet 10 mg PO DAILY #90 tabs 05/06/23 Allergies Allergy/AdvReac Type Severity Reaction Status Date / Time latex [LATEX] Allergy Unknown Verified 10/22/23 15:18 morphine [MORPHINE] Allergy Unknown Verified 10/22/23 15:18 Penicillins [PENICILLINS] Allergy Unknown Verified 10/22/23 15:18 Review of Systems <Xin Steven PA-C - Last Filed: 10/22/23 20:40> Review of Systems Narrative: See HPI Patient History <Xin Steven PA-C - Last Filed: 10/22/23 20:40> Medical History History of breast cancer Chronic anticoagulation Chronic atrial fibrillation Venous (peripheral) insufficiency History of colonic polyps Chicken pox (~1947) Cataracts, bilateral (~2017) Heavy menstrual period (~1979) Fibroids (~1983) Hemorrhoid (~1970) Skin cancer (~1972) Mixed hyperlipidemia Osteopenia Essential hypertension Surgical History Anesthesia H/O: hysterectomy (~1984) History of lymph node excision H/O mastectomy (~2016) Family History Father Pneumonia Mother History of heart disease Brother Cirrhosis Sister Atrial fibrillation Social History details: (Luis), identical twin sister (Ursula Cruz) household members: spouse Smoking Status: Never smoker Smoking Status: Never smoker alcohol intake frequency: 0-2 drinks per day Substance Use Type: does not use Exam <Xin Steven PA-C - Last Filed: 10/22/23 20:40> Narrative Exam Narrative: GENERAL: [78] year old patient appears stated age. Well-developed patient, in mild distress. HEAD: Atraumatic. Normocephalic. EYES: Pupils equal round and reactive. Extraocular motions intact. No scleral icterus. No injection or drainage. ENT: Nose without bleeding, purulent drainage. Airway patent. NECK: Trachea midline. Non tender CARDIOVASCULAR: Regular rate and rhythm without murmurs, gallops, or rubs. RESPIRATORY: Clear to auscultation. Breath sounds equal bilaterally. No wheezes, rales, or rhonchi. EXTREMITIES: There is very subtle erythema in the patient's low anterior carrera with tenderness that is notable just at the mid carrera. No pain with range of motion of the ankle or ambulation. Normal active range of motion of the knee and ankle. No deformity or significant swelling noted. In the affected right wrist patient has a area of swelling directly above the distal radius, it is somewhat tender to palpation, she also has tenderness over the medial dorsal wrist and over the MC put P joint of the thumb on the right. Range of motion is intact however she has difficulty giving a full thumbs-up and does have reduced beauty parlor cleaner on the right. Sensation is intact capillary refills less than 2 seconds, skin is pink warm and dry, no broken skin. No edema or joint tenderness. BACK: No C-spine tenderness deformity or step-offs. Nontender without deformity or crepitance. No flank tenderness. NEURO: AOx3. SKIN: No rash or erythema of visible areas Initial Vital Signs Initial Vital Signs: Vital Signs Temperature 97.2 F L 10/22/23 15:11 Pulse Rate 87 10/22/23 15:11 Respiratory Rate 18 10/22/23 15:11 Blood Pressure 157/89 H 10/22/23 15:11 Pulse Oximetry 97 10/22/23 15:11 Oxygen Delivery Method Room Air 10/22/23 15:11 <Olivia Orellana DO - Last Filed: 10/25/23 04:46> Initial Vital Signs Initial Vital Signs: Vital Signs Temperature 97.2 F L 10/22/23 15:11 Pulse Rate 87 10/22/23 15:11 Respiratory Rate 18 10/22/23 15:11 Blood Pressure 157/89 H 10/22/23 15:11 Pulse Oximetry 97 10/22/23 15:11 Oxygen Delivery Method Room Air 10/22/23 15:11 Course <Xin Steven PA-C - Last Filed: 10/22/23 20:40> Orders Ordered: ED Orders 10/22/23 15:18 XR wrist RT min 3V Stat Vital Signs Vital signs: Vital Signs - 8 hr 10/22/23 15:11 10/22/23 16:58 Temperature 97.2 F L 98.1 F Pulse Rate 87 92 H Respiratory Rate 18 16 Blood Pressure 157/89 H 128/77 Pulse Oximetry 97 99 Oxygen Delivery Method Room Air Room Air <Olivia Orellana DO - Last Filed: 10/25/23 04:46> Orders Ordered: ED Orders 10/22/23 15:18 XR wrist RT min 3V Stat Vital Signs Vital signs: Vital Signs - 8 hr 10/22/23 15:11 10/22/23 16:58 Temperature 97.2 F L 98.1 F Pulse Rate 87 92 H Respiratory Rate 18 16 Blood Pressure 157/89 H 128/77 Pulse Oximetry 97 99 Oxygen Delivery Method Room Air Room Air MDM - Fall <Xin Steven PA-C - Last Filed: 10/22/23 20:40> Differential Diagnosis Differential diagnosis: Likely other (Wrist sprain, strain, hand sprain, strain, bruising, fall) Imaging Data Extremity x-ray #1: My Impression: Agree with Radiology interpretation Radiologist's Impression: [address] [address] XRay Report Signed Patient: Hemalatha Zafar MR#: [id number] : 1945 Acct:[id number] Age/Sex: 78 / F Date of Service: 10/22/23 Loc: ED Accession Number: [id number] Procedure: XR wrist RT min 3V Ordering Provider: Olivia Orellana D.O. PROCEDURE: XR WRIST RT MIN 3V INDICATIONS: fall TECHNIQUE: 4 views of the wrist were acquired. COMPARISON: None. FINDINGS: Bones: No fractures or dislocations. Osteoarthritic changes are noted throughout right wrist most notably involving 1st CMC joint. No suspicious bony lesions. Soft tissues: No suspicious soft tissue calcifications. IMPRESSION: No acute wrist fracture or dislocation. Right wrist joint osteoarthritis. Dictated by: Neno Sandoval M.D. on 10/22/2023 at 16:07 Approved by: Neno Sandoval M.D. on 10/22/2023 at 16:08 Treatment and disposition Shared decision making:: Shared decision-making was used to determining plan for outpatient follow-up and care in the ER today. MDM Narrative Medical decision making narrative: This is a well-appearing 78-year-old woman who appears younger than stated age who is on Eliquis and had a fall at home from approximately 6-12 inches of height but did not hit her head or neck with only complaint right wrist pain and left carrera pain. No LOC. imaging of the right wrist shows no evidence of fracture, exam is most consistent with a sprain/strain, the left carrera is consistent with mild soft tissue injury/bruising and imaging is not obtained. Patient is placed in a thumb spica removable splint for the right wrist, advised to follow up with her PCP closely, seek re-evaluation or see orthopedics if she is having persistent or worsening symptoms. CT head neck is not obtained as patient did not hit her head has no pain tenderness or injury on exam. She also has no other pain or tenderness and based on the mechanism of injury additional imaging such as chest abdomen pelvis is not warranted. Patient is encouraged to take Tylenol as needed for pain, continue her regular medications. Wear an Kaiden wrap when she has not using the wrist. RI CE. Return precautions provided, follow-up plan discussed, all questions answered. Discharge Plan Departure Patient Disposition: Home Clinical Impression: Sprain and strain of right wrist, Sprain and strain of right hand Activity Restrictions/Additional Instructions: *You have been diagnosed with [wrist and hand sprain] *What to do: *Please continue to take your regular medications as directed. [ ] New medication prescriptions sent to your pharmacy: [ ] [ ] New medication written as a paper prescription [ X] No new medications given *Please follow up with your primary care provider in 2-3 days, call for an appointment. Let them know you were seen in the Emergency Department and that we ask that you be seen in follow up. We will electronically transmit a record of today's note if your PCP is in our system. You had a fall at home today, thankfully did not hit her head or neck, we x-rayed your wrist and there is no evidence of fracture, you do have some arthritic chronic changes to your bones. Based on your exam and what happened today I do think that you have a sprain, the swelling on your wrist over the end of your radius should improve over the next few days we placed you in a wrist brace you should leave this on most of the time you can take it off to shower or if needed you can take it off to sleep but it should provide some good support for you as you heel. I recommend Tylenol for pain if needed, you may want to elevate your arm and hand as much as possible over the next 24-48 hours and when you are not using the wrist brace he may want to consider using an Kaiden wrap for some support. I recommend following up with your primary care provider. If you have new pain or symptoms of concern please make sure you get rechecked. *If you do not have a primary care provider please contact the [facility] Resource line at [phone]. They will ask some questions about your medical history and help get you set up with a doctor in the community. *Return to Emergency Department if you should have any new, worsening or concerning symptoms, such as [fever greater than 101 F, shaking chills, worsening pain, persistent vomiting or other bothersome symptoms] Prescriptions: No Action amlodipine 2.5 mg tablet 2.5 mg PO DAILY Qty: 90 3RF Eliquis 5 mg tablet 5 mg PO BID Qty: 180 3RF metoprolol succinate 50 mg tablet extended release 24 hr 50 mg PO DAILY Qty: 90 3RF rosuvastatin 10 mg tablet 10 mg PO DAILY Qty: 90 3RF cholecalciferol (vitamin D3) 50 mcg (2,000 unit) capsule 50 mcg PO DAILY vitamin E 400 unit capsule 400 unit PO DAILY letrozole 2.5 mg tablet 2.5 mg PO DAILY Patient Comments: TAKE 1 TABLET BY MOUTH DAILY Referrals: Shay Melton MD [Primary Care Provider] - Stand Alone Forms: Patient Portal/API ED Sign-out <Olivia Orellana DO - Last Filed: 10/25/23 04:46> Cosign ED Attending Jovannaature Attestation: I was immediately available in the department for consultation.
[2023-10-22 16:58] VITALS: BP 128/77; PULSE 92; RESP 16; TEMP 36.7; O2SAT 99
== END 2023-10-22 16:59 | disposition home or self-care (01) ==
PROVIDERS: Emergency Provider Student in an Organized Health Care Education/Training Program; Family Provider Internal Medicine Medical Oncology; PCP Internal Medicine
DX: S63.501A Unspecified sprain of right wrist, initial encounter (principal); S66.911A Strain of unspecified muscle, fascia and tendon at wrist and hand level, right hand, initial encounter; W11.XXXA Fall on and from ladder, initial encounter
CPT/HCPCS: 73110; 99282; 99283

== ENCOUNTER → 2024-07-30 14:26 | Outpatient (CLI) | payer MEDICARE, BC, SELFPAY ==
--- NOTE | 2024-07-30 14:29 | DI.MG.S_ITS ---
UNILATERAL RIGHT DIGITAL SCREENING MAMMOGRAM 3D/2D WITH CAD POST MASTECTOMY: 07/30/2024 CLINICAL: Routine screening. Personal history of left breast cancer. Comparison is made to exams dated: 06/25/2023 mammogram, 06/13/2022 mammogram, 06/20/2021 mammogram, 04/18/2020 mammogram, and 10/23/2018 mammogram - [facility]. The breasts are heterogeneously dense, which may obscure small masses (category c / 51-75% glandular tissue). Current study was also evaluated with a Computer Aided Detection (CAD) system. There are benign calcifications in the right breast. No significant masses, calcifications, or other findings are seen in the breast. There has been no significant interval change. IMPRESSION: BENIGN There is no mammographic evidence of malignancy. A 1 year screening mammogram is recommended. This exam was interpreted at Station ID: [id number]. NOTE: For mammograms, a report in lay terms will be sent to the patient. Approximately 15% of breast malignancies will not be visualized mammographically. In the management of a palpable breast mass, a negative mammogram must not discourage biopsy of a clinically suspicious lesion. Electronically Signed By: Job harrison/penrad:07/30/2024 15:52:44 copy to: Addis Mauricio copy to: Raeann Charles letter sent: Normal Exam ACR BI-RADS Category 2: Benign
== END ==
PROVIDERS: Family Provider Internal Medicine Medical Oncology; PCP Internal Medicine; Referring Provider Internal Medicine; Visit Provider Internal Medicine
DX: Z12.31 Encounter for screening mammogram for malignant neoplasm of breast (principal); Z85.3 Personal history of malignant neoplasm of breast; R92.333 Mammographic heterogeneous density, bilateral breasts
CPT/HCPCS: 77063; 77067

== ENCOUNTER → 2024-11-19 10:46 | Outpatient (CLI) | payer MEDICARE, BC, SELFPAY ==
[2024-11-19 11:06] LABS: Hematocrit 42.2 % (36-46); Hemoglobin 14.1 g/dL (12.0-16.0); Mean Corpuscular HGB Conc 33.4 % (30-36); Mean Corpuscular Hemoglobin 30.8 PG (26-34); Mean Corpuscular Volume 92.2 fL (80-100); Platelet Count 245 X10^3/uL (150-400); Red Blood Cell Count 4.58 X10^6/uL (4.0-5.2); Red Cell Distribution Width 14.2 % (11.6-14.8); White Blood Cell Count 4.5 X10^3/uL (4.5-11.0)
[2024-11-19 11:51] LABS: Alanine Aminotransferase 41 IU/L (<35); Albumin 4.4 g/dL (3.5-5.0); Alkaline Phosphatase 66 U/L (38-126); Aspartate Aminotransferase 36 IU/L (14-36); BUN Creatinine Ratio 26.9 (6-22); Blood Urea Nitrogen 14 mg/dL (7-17); Calcium 9.6 mg/dL (8.4-10.2); Carbon Dioxide 26 mmol/L (22-32); Chloride 105 mmol/L (98-107); Cholesterol 160 mg/dL (140-199); Estimated Glomerular Filt Rate > 60 mL/min (>60); Globulin 2.2 g/dL (1.7-4.1); Glucose 98 mg/dL (70-99); HDL Cholesterol 100 mg/dL (40-60); HEMOLYSIS < 15 (0-50); LDL Cholesterol Calculated 50 mg/dL (<100); Potassium 4.1 mmol/L (3.4-5.1); Sodium 137 mmol/L (137-145); Total Protein 6.6 g/dL (6.3-8.2); Triglycerides 51 mg/dL (35-150)
== END ==
PROVIDERS: PCP Internal Medicine; Referring Provider Internal Medicine; Visit Provider Internal Medicine
DX: I48.20 Chronic atrial fibrillation, unspecified (principal); I10 Essential (primary) hypertension; E78.2 Mixed hyperlipidemia
CPT/HCPCS: 36415; 80053; 80061; 85027